=== PATIENT | female | born 1985 | race Caucasian/White ===

== ENCOUNTER → 2016-08-24 | Outpatient (CLI) | payer OTHER, BC ==
[~2016-08-24] MED LIST: OXYC-57 PO
[2016-08-25 14:59] LABS: AFP CONCENTRATION 41.2 NG/ML; AFP MULTIPLE OF MEDIAN 0.81; AFPTS GESTATIONAL AGE 19.4 WEEKS; AFPTS INSULIN DEP DIABETIC? NO; AFPTS MATERNAL WT 154 LBS; ALPHA-FETOPROTEIN RACE CAUCASIAN=W; ESTRIOL MULTIPLE OF MEDIAN 1.28; HISTORY OF NTD NO; INHIBIN A 198 PG/ML; INHIBIN A MOM 1.13; REPEAT SAMPLE? NO; hCG MULTIPLE OF MEDIAN 0.85
== END | disposition home or self-care (01) ==
LOC: C.LAB1850 11:30
PROVIDERS: ATTEND Obstetrics & Gynecology
DX: Z34.02 Encounter for supervision of normal first pregnancy, second trimester (principal)

== ENCOUNTER → 2016-10-18 | Outpatient (CLI) | payer OTHER, BC ==
[2016-10-18 13:13] LABS: HEMATOCRIT 31.9 % (37-47)
[2016-10-18 13:50] LABS: GTGD 50 Grams
== END | disposition home or self-care (01) ==
LOC: C.LAB1850 11:36
PROVIDERS: ATTEND Obstetrics & Gynecology
DX: Z34.03 Encounter for supervision of normal first pregnancy, third trimester (principal)

== ENCOUNTER → 2016-11-15 | Outpatient (CLI) | payer OTHER, BC ==
[2016-11-15 15:58] LABS: URINE APPEARANCE CLOUDY (CLEAR); URINE BILIRUBIN NEG (NEG); URINE COLOR DK YELLOW; URINE EPITHELIAL CELL AUTO >30 /lpf (0-5); URINE NITRITE NEG (NEG); URINE PH 6.5 (4.5-7.5); URINE SPECIFIC GRAVITY 1.023 (1.000-1.030); UROBILINOGEN POS (NEG)
[2016-11-15 16:02] LABS: MANUAL MICROSCOPIC REQUIRED? NO; REVIEW REQ? YES
== END | disposition home or self-care (01) ==
LOC: C.LABSPEC 15:44
PROVIDERS: ATTEND Obstetrics & Gynecology
DX: Z34.03 Encounter for supervision of normal first pregnancy, third trimester (principal)

== ENCOUNTER → 2016-12-20 | Outpatient (CLI) | payer OTHER, BC | END | disposition home or self-care (01) | LOC: C.LABSPEC 13:36 | PROVIDERS: ATTEND Obstetrics & Gynecology | DX: Z34.03 Encounter for supervision of normal first pregnancy, third trimester (principal) ==

== ENCOUNTER 2017-01-09 08:01 | Inpatient (IN) | payer OTHER, BC ==
[~2017-01-09] VITALS: Ht 172.7 cm; Wt 79.0 kg
[2017-01-09] MEDS ORDERED: LACTATED RINGER'S 1000ML 1,000 ML IV PRN (08:49)
[2017-01-09] MEDS ORDERED: EpHEDrine SULFATE INJ 50 MG/ML AMP ONE (08:53)
[2017-01-09] MEDS ORDERED: BUPIVACAINE 0.25% 30 ML VIAL ONE (08:53)
[2017-01-09] MEDS ORDERED: FENTANYL CITRATE INJ 50 MCG/1 ML 2 ML VIAL ONE ×2 (08:54→16:34)
[2017-01-09] MEDS ORDERED: FENTANYL 2MCG/ML ROPIV 1.25MG/ML 100ML BAG EPI ONE (08:54)
[2017-01-09 09:05] VITALS: Ht 172.7 cm; Wt 79.0 kg
[2017-01-09 09:32] LABS: MEAN CELL VOLUME 87.5 fL (80-100); MEAN PLATELET VOLUME 10.1 fL (7.4-10.4); PLATELET COUNT 182 K/uL (130-400)
[2017-01-09 09:39] LABS: MEAN CORPUSCULAR HGB CONC 35.4 g/dl (32-36)
[2017-01-09] MEDS: LACTATED RINGER'S 1000ML 1,000 ML IV SCH ×2 (10:01→13:52)
[2017-01-09] MEDS ORDERED: LACTATED RINGER'S 1000ML 500 ML IV PRN ×2 (10:06→17:21)
[2017-01-09] MEDS ORDERED: NALOXONE HCL INJ 1 MG in SODIUM CHLORIDE 0.9% 1000ML 1,000 ML IV PRN ×8 (10:06→17:21)
[2017-01-09] MEDS ORDERED: ONDANSETRON INJ 2 MG/ML 2 ML VIAL IV PRN ×2 (10:15→17:30)
[2017-01-09] MEDS ORDERED: NALBUPHINE HCL INJ 10 MG/ML AMP IV PRN ×2 (10:15→17:30)
[2017-01-09] MEDS ORDERED: FENTANYL 2MCG/ML ROPIV 1.25MG/ML 100ML BAG EPI PRN (10:15)
[2017-01-09] MEDS ORDERED: PROMETHAZINE HCL INJ 25 MG in SODIUM CHLORIDE 0.9% 50ML 50 ML IV PRN ×2 (10:15→17:30)
[2017-01-09] MEDS ORDERED: EpHEDrine SULFATE INJ 50 MG/ML AMP IV PRN ×2 (10:15→17:30)
[2017-01-09] MEDS ORDERED: DiphenhydrAMINE HCL 50 MG/ML VIAL IV PRN ×2 (10:15→17:30)
[2017-01-09] MEDS ORDERED: NALOXONE HCL 0.4 MG/1 ML VIAL/CARP IV PRN ×2 (10:15→17:30)
[2017-01-09] MEDS ORDERED: TERBUTALINE SULFATE 1 MG/ML VIAL SQ ONE (12:45)
[2017-01-09] MEDS ORDERED: CITRIC ACID/SODIUM CITRATE 15 ML UDC ONE (16:29)
[2017-01-09] MEDS ORDERED: CITRIC ACID/SODIUM CITRATE 15 ML UDC PO ONE (16:30)
[2017-01-09] MEDS ORDERED: CEFAZOLIN SOD 1 GM VIAL ONE (16:43)
[2017-01-09] MEDS ORDERED: LIDOCAINE/EPINEPHRINE 2% 1:200,000 20 ML SDV ONE (16:44)
[2017-01-09] MEDS ORDERED: OXYTOCIN INJ 10 UNITS/ML VIAL ONE ×4 (16:47→17:28)
[2017-01-09] MEDS ORDERED: MoRPHine SULFATE PF 1 MG/ML 10 ML AMP/VIAL ONE (16:49)
[2017-01-09] MEDS ORDERED: ONDANSETRON INJ 2 MG/ML 2 ML VIAL ONE (16:53)
[2017-01-09] MEDS ORDERED: CEFAZOLIN IV 2,000 MG in DEXTROSE 5% 50ML 50 ML IV SCH (17:00)
[2017-01-09] MEDS ORDERED: SODIUM CHLORIDE 0.9% 1000ML 1,000 ML IV PRN (17:21)
[2017-01-09] MEDS ORDERED: NALOXONE HCL INJ 0.08 MG in SYRINGE 1.8 ML IV PRN (17:21)
[2017-01-09] MEDS ORDERED: KETOROLAC TROMETHAMINE 30 MG/ML VIAL ONE (17:28)
[2017-01-09] MEDS ORDERED: HYDROCORTISONE ACETATE 25 MG SUPP PR PRN (17:30)
[2017-01-09] MEDS ORDERED: MoRPHine SULFATE PF 1 MG/ML 10 ML AMP/VIAL EPI PRN (17:30)
[2017-01-09] MEDS ORDERED: DIPHTHERIA/TETANUS/PERTUSSIS 0.5 ML SYR/VIAL IM. ONE (17:30)
[2017-01-09] MEDS ORDERED: BENZOCAINE 20% AER SPR 82.5 GM CAN EXT PRN (17:30)
[2017-01-09] MEDS ORDERED: SUPERCREAM 0.870 % 15GM JAR EXT PRN (17:30)
[2017-01-09] MEDS ORDERED: LANOLIN OINT EXT PRN ×2 (17:30)
--- NOTE | 2017-01-09 17:40 | [facility] Post Operative Brief Note ---
Immediate Operative Summary Operative Date Jan 09, 2017. Pre-Operative Diagnosis Term intrauterine , Category III Tracing - nonresponsive to resuscitative measures, bradycardia Post-Operative Diagnosis Same Procedure(s) Performed Primary low transverse section Surgeon Kyle Rajan DO Hotel Service Manager Surgeon(s) Lydia Leroy MD Estimated Blood Loss 300ml Findings Viable male , APGARS 8/9, Wt 7#7. Tight nuchal cord x 1. Normal appearing uterus, tubes, ovaries. Specimens Placenta, cord blood sample Drains ho clear yellow Anesthesia spinal Complication(s) None Disposition Recovery Room / PACU
--- NOTE | 2017-01-09 18:11 | Anesthesiology Progress Note ---
Anesthesia Post Op Note Date & Time Jan 09, 2017 at 18:10 Notes Mental Status: alert / awake / arousable, participated in evaluation Pt Amnestic to Procedure: No Nausea / Vomiting: adequately controlled Pain: adequately controlled Airway Patency, RR, SpO2: stable & adequate BP & HR: stable & adequate Hydration State: stable & adequate Neuraxial Anesthesia: was administered, sensory block is resolving Anesthetic Complications: no major complications apparent
[2017-01-09] MEDS: OXYTOCIN INJ 20 UNITS in LACTATED RINGER'S 1000ML 1,000 ML IV SCH (19:33)
[2017-01-09] MEDS: DOCUSATE SODIUM 100 MG CAP PO SCH (20:27)
[2017-01-09 20:45] VITALS: BP 105/65; PULSE 104; TEMP 36.9; O2SAT 97
[2017-01-09] MEDS: KETOROLAC TROMETHAMINE 30 MG/ML VIAL IV. PRN (21:18)
[2017-01-09 21:45] VITALS: BP 117/67; PULSE 104; TEMP 36.8; O2SAT 98
[2017-01-09 22:45] VITALS: O2SAT 97
[2017-01-09 23:55] VITALS: BP 109/69; PULSE 96; TEMP 36.8; O2SAT 98; O2SAT 99
[2017-01-10] VITALS (18 sets, daily range): BP systolic 98–121; BP diastolic 64–83; PULSE 80–100; TEMP 36.6–37.2; O2SAT 96–100
[2017-01-10] MEDS ORDERED: ONDANSETRON INJ 2 MG/ML 2 ML VIAL IV PRN ×2 (00:01→12:00)
[2017-01-10] MEDS ORDERED: DiphenhydrAMINE HCL 50 MG/ML VIAL IV PRN ×2 (00:01→12:00)
[2017-01-10] MEDS ORDERED: KETOROLAC TROMETHAMINE 30 MG/ML VIAL IV. PRN ×2 (00:01→12:01)
[2017-01-10] MEDS: OXYTOCIN INJ 20 UNITS in LACTATED RINGER'S 1000ML 1,000 ML IV SCH (04:58)
--- NOTE | 2017-01-10 05:22 | OPERATIVE REPORT ---
DATE OF OPERATION: 01/09/2017 PREOPERATIVE DIAGNOSES: 1. Term intrauterine . 2. Category 3 heart tracing. 3. Persistent bradycardia. POSTOPERATIVE DIAGNOSES: Same. PROCEDURE PERFORMED: Primary low transverse section. SURGEON: Dr. Faiza Rajan. INDUSTRIAL PRODUCTION MANAGER: Dr. Leroy. ESTIMATED BLOOD LOSS: 300 mL. FINDINGS: Viable male with Apgars 8 and 9, weight 7 pounds 7 ounces, tight nuchal cord x1. Normal appearing uterus, tubes, and ovaries. SPECIMENS: Placenta and cord blood sample. DRAINS: Tobin, clear yellow at conclusion of case. ANESTHESIA: Spinal. COMPLICATIONS: None. DISPOSITION: Stable and good to recovery room and PACU. INDICATIONS FOR DELIVERY: The patient is a 31-year-old G1, P0 at 39 weeks 1 day who had presented in spontaneous labor. She progressed to 8 cm of dilation and was having occasional contraction and with almost every contraction, a variable deceleration. Resuscitative measures were attempted and then the baby had a 10-plus minute heart rate deceleration to the 80s and 90s, nonresponsive to resuscitative measures. Oxygen was applied. No Pitocin was being used in the first place. Fluid bolus was given, multiple position changes were attempted and baby was nonresponsive to these resuscitative measures. Due to remote from delivery status and nonreassuring heart tones, I discussed with the patient section and she was agreeable. I verbally consented her for section in the room and she gave verbal consent. Due to the urgent nature of the section, written consent was unable to be obtained prior to proceeding to the operating room. By the time patient was ready to be taken to OR, FHTs did return to 140s/150s, however due to Cat 3 tracing, prolonged bradycardia, slow return to baseline, and non-imminent delivery, decision was made to proceed with section. DESCRIPTION OF PROCEDURE: The patient was taken to the operating room where spinal anesthesia was given. She was prepared and draped in the usual sterile fashion in the supine position with a leftward tilt. A Pfannenstiel skin incision was made with a scalpel and carried through to the underlying layer of the fascia. Fascia was nicked at midline and bilaterally bluntly. The anterior aspect of the fascial incision was grasped with Karly clamps x2, elevated off the underlying rectus abdominis muscles and dissected bluntly. In a similar fashion, the inferior aspect of the incision was dissected. The rectus abdominis muscles were at midline and the peritoneum was entered bluntly digitally. This was extended bluntly. The bladder blade was placed. A bladder flap was created using Metzenbaum scissors and [place] Island[place] forceps. The uterine incision was made with a scalpel and then extended cephalad caudad manually. The baby was delivered from a cephalic presentation. The head delivered. A tight nuchal cord was noted. This was reduced. The anterior, followed by posterior shoulder, followed by body were delivered. At the time of delivery, it was noted by myself an abnormal appearing leg that director of search engine marketing attending delivery, Dr. Moore, reported verbally that this appeared to be dislocated knee, that appeared to have been present for a significant period of time, did not appear to be related to delivery. No abnormal aspects of the uterus were noted that could have possibly contributed to this during development on my exploration. The cord was doubly clamped and cut, spontaneous cry was heard on the field. The baby was handed off to the waiting director of search engine marketing. A cord segment was obtained for cord gases. The placenta was delivered spontaneously intact with a 3-vessel cord. The uterus was exteriorized. The uterus was cleared of all clots and debris. The hysterotomy incision was reapproximated using 0 Vicryl in a running locked stitch, a second layer of the same suture was used to imbricate the hysterotomy incision. The posterior uterus was inspected and found to be normal. The uterus was returned to the abdomen and the hysterotomy incision was noted to be hemostatic. The gutters were cleared of clots and debris. The fascia was reapproximated with 0 Vicryl in a running stitch. Subcutaneous tissue was reapproximated using 2-0 plain gut and then the skin was reapproximated using 4-0 Vicryl in a running subcuticular stitch. I attest to the content of the Intraoperative Record and any orders documented therein. Any exceptions are noted below. MTDD
[2017-01-10 07:06] LABS: BASO % 0.1 %; BASO ABS # 0.01 K/uL (0-0.2); COMPLETE YES; EOS % 0.1 %; HEMATOCRIT 28.3 % (37-47); IG% 0.4 %; LYMPH % 7.7 %; LYMPH ABS # 0.71 K/uL (1.2-3.4); MEAN CELL VOLUME 89.8 fL (80-100); MEAN CORPUSCULAR HEMOGLOBIN 31.7 pg (25-34); MEAN CORPUSCULAR HGB CONC 35.3 g/dl (32-36); MEAN PLATELET VOLUME 9.7 fL (7.4-10.4); MONO % 4.5 %; NEUT % 87.2 %; PLATELET COUNT 141 K/uL (130-400); RED BLOOD COUNT 3.15 M/uL (4.2-5.4); WHITE BLOOD COUNT 9.21 K/uL (4.8-10.8)
--- NOTE | 2017-01-10 07:16 | Progress Note ---
Subjective Jan 10, 2017. Subjective conversation w/ patient, physical exam Ambulation: ambulating normally (has not ambulated yet, going to attempt this morning) Voiding: ho catheter in place Passing Gas: Yes Diet Tolerance: NPO (has not eaten yet) Lochia: Small Feeding Type: Bottle Feeding Pain: well controlled Review of Systems Constitutional: No fever, No chills, No sweats Respiratory: No cough, No shortness of breath Cardiac: No chest pain, No palpitations Abdomen: No pain, No nausea, No vomiting Objective Vital Signs Date Time Temp Pulse Resp B/P (MAP) Pulse Ox O2 Delivery O2 Flow Rate FiO2 01/10/17 05:00 20 100 01/10/17 05:00 36.9 88 20 98/64 (75) 100 Room Air 01/10/17 04:00 20 100 01/10/17 03:00 17 97 01/10/17 02:00 16 97 01/10/17 01:10 16 96 01/10/17 00:00 20 98 01/09/17 23:55 98 Room Air 01/09/17 23:55 36.8 96 20 109/69 (82) 99 Room Air 01/09/17 23:55 20 99 01/09/17 22:45 16 97 01/09/17 21:45 36.8 104 20 117/67 (84) 98 Room Air 01/09/17 21:45 16 98 01/09/17 20:45 18 97 01/09/17 20:45 97 Room Air 01/09/17 20:45 36.9 104 18 105/65 (78) 97 Room Air Physical Exam General Appearance: WELL-APPEARING, NO APPARENT DISTRESS Respiratory/Chest: lungs clear, no accessory muscle use Cardiovascular: regular rate, rhythm, no murmur Abdomen: non tender, soft Incision Description: Clean, Dry & Intact Extremities: non-tender, no calf tenderness Laboratory Results Last 24 Hours Test 01/09/17 09:17 01/10/17 06:49 White Blood Count 12.70 K/uL 9.21 K/uL Red Blood Count 4.00 M/uL 3.15 M/uL Hemoglobin 12.4 g/dL 10.0 g/dL Hematocrit 35.0 % 28.3 % Mean Corpuscular Volume 87.5 fL 89.8 fL Mean Corpuscular Hemoglobin 31.0 pg 31.7 pg Mean Corpuscular Hemoglobin Concent 35.4 g/dl 35.3 g/dl RDW Standard Deviation 43.2 fL 45.6 fL RDW Coefficient of Variation 13.4 % 13.9 % Platelet Count 182 K/uL 141 K/uL Mean Platelet Volume 10.1 fL 9.7 fL Neutrophils (%) (Auto) 87.2 % Lymphocytes (%) (Auto) 7.7 % Monocytes (%) (Auto) 4.5 % Eosinophils (%) (Auto) 0.1 % Basophils (%) (Auto) 0.1 % Neutrophils # (Auto) 8.03 K/uL Lymphocytes # (Auto) 0.71 K/uL Monocytes # (Auto) 0.41 K/uL Eosinophils # (Auto) 0.01 K/uL Basophils # (Auto) 0.01 K/uL Immature Granulocyte % (Auto) 0.4 % Immature Granulocyte # (Auto) 0.04 K/uL Assessment and Plan Post-, Post-Op Day#: 1 Continue Routine Care: C Section Day 1 A+, GBS-, Rubella immune Hgb 10 today Encourage ambulation, monitor lochia Continue routine post C Section care Resident Physician Supervision Note: I was present with Dr. Leroy during the history and exam. I discussed the case with the resident and agree with the findings and plan as documented in the note. Any exceptions or clarifications are listed here: POD#1 doing well. Continue routine postop care. Documented By: Faiza Rajan
[2017-01-10] MEDS: KETOROLAC TROMETHAMINE 30 MG/ML VIAL IV. PRN (08:49)
[2017-01-10] MEDS: FERROUS SULFATE 325 MG TAB PO SCH (08:50)
[2017-01-10] MEDS: PRENATAL VITAMIN TAB PO SCH (08:50)
[2017-01-10] MEDS: DOCUSATE SODIUM 100 MG CAP PO SCH ×2 (08:51→20:08)
[2017-01-10] MEDS ORDERED: DC INTRASPINAL MORPHINE SCH ×2 (12:00)
[2017-01-10] MEDS ORDERED: NO NARCOTICS OR SEDATIVES SCH ×2 (12:00)
[2017-01-10] MEDS ORDERED: OXYCODONE/ACETAMINOPHEN 5-325 TAB PO PRN ×4 (12:00)
[2017-01-11 07:08] LABS: HEMATOCRIT 29.1 % (37-47)
--- NOTE | 2017-01-11 07:38 | Progress Note ---
Subjective Jan 11, 2017. Subjective conversation w/ patient, physical exam Ambulation: ambulating normally Voiding: no voiding problems Passing Gas: Yes Diet Tolerance: Regular Diet Lochia: Small Feeding Type: Bottle Feeding Pain: none Review of Systems Constitutional: No fever, No chills Respiratory: No cough, No shortness of breath Cardiac: No chest pain, No palpitations Abdomen: No pain, No nausea, No vomiting Objective Vital Signs Date Time Temp Pulse Resp B/P (MAP) Pulse Ox O2 Delivery O2 Flow Rate FiO2 01/10/17 23:20 36.9 95 20 112/76 (88) 99 Room Air 01/10/17 23:20 Room Air 01/10/17 20:00 37.2 100 20 116/83 (94) 98 Room Air 01/10/17 20:00 Room Air 01/10/17 15:30 98 Room Air 01/10/17 15:30 36.8 98 18 121/78 (92) 98 Room Air 01/10/17 12:00 16 100 01/10/17 11:05 36.6 80 18 107/73 (84) 97 Room Air 01/10/17 11:00 18 100 01/10/17 10:00 18 98 01/10/17 09:00 16 99 01/10/17 08:30 97 Room Air 01/10/17 08:00 16 98 Physical Exam General Appearance: WELL-APPEARING, NO APPARENT DISTRESS Respiratory/Chest: lungs clear, no accessory muscle use Cardiovascular: regular rate, rhythm, no murmur Abdomen: normal bowel sounds, non tender, soft Fundus: Firm, Non-Tender, Relation to Umbilicus (1 cm below) Incision Description: Clean, Dry & Intact Extremities: non-tender, no calf tenderness Laboratory Results Last 24 Hours Test 01/11/17 06:46 Hemoglobin 10.2 g/dL Hematocrit 29.1 % Assessment and Plan Post-, Post-Op Day#: 2 Continue Routine Care: C section day 2 Vitals reviewed and stable A+, GBS-, rubella immune Hgb 10.2 today Encourage ambulation, monitor lochia Patient doing well clinically CONTINUE ROUTINE POST C SECTION CARE Resident Physician Supervision Note: I interviewed and examined the patient. Discussed with Dr. Leroy and agree with findings and plan as documented in the note. Any exceptions or clarifications are listed here: [None] Documented By: Magen Zaldivar
[2017-01-11 08:10] VITALS: BP 141/86; PULSE 99; TEMP 36.6; O2SAT 98
[2017-01-11] MEDS: FERROUS SULFATE 325 MG TAB PO SCH (08:13)
[2017-01-11] MEDS: DOCUSATE SODIUM 100 MG CAP PO SCH ×2 (08:13→19:31)
[2017-01-11] MEDS: PRENATAL VITAMIN TAB PO SCH (08:13)
[2017-01-11] MEDS: IBUPROFEN 600 MG TAB PO PRN ×2 (08:14→19:33)
[2017-01-11 16:45] VITALS: BP 117/78; PULSE 90; TEMP 36.6; O2SAT 100
[2017-01-11 23:35] VITALS: BP 115/79; PULSE 67; TEMP 36.6; O2SAT 97
--- NOTE | 2017-01-12 07:43 | Progress Note ---
Subjective Jan 12, 2017. Subjective conversation w/ patient, physical exam, lab review Voiding: no voiding problems Passing Gas: Yes Diet Tolerance: Regular Diet Lochia: Small Feeding Type: Bottle Feeding Pain: controlled with oral pain Objective Vital Signs Date Time Temp Pulse Resp B/P (MAP) Pulse Ox O2 Delivery O2 Flow Rate FiO2 01/11/17 23:35 97 Room Air 01/11/17 23:35 36.6 67 16 115/79 (91) 97 Room Air 01/11/17 16:45 36.6 90 18 117/78 (91) 100 Room Air 01/11/17 16:45 Room Air 01/11/17 08:10 36.6 99 21 141/86 (104) 98 Room Air 01/11/17 08:10 Room Air Physical Exam General Appearance: WELL-APPEARING, WD/WN, NO APPARENT DISTRESS Abdomen: normal bowel sounds, non tender, soft Fundus: Firm, Non-Tender, Relation to Umbilicus (at u) Incision Description: Clean, Dry & Intact Extremities: non-tender, normal inspection, no pedal edema Assessment and Plan Post-, Post-Op Day#: 3 Continue Routine Care: Doing well, plan d/c home. Instructions given.
[2017-01-12] MEDS ORDERED: OXYC-57 PO (07:44)
--- NOTE | 2017-01-12 07:45 | Discharge Instructions ---
Discharge Instructions Date of Service Jan 12, 2017. Admission Reason for Admission: R/O Labor Discharge Discharge Diagnosis / Problem: s/p primary Discharge Goals Goal(s): Routine recovery after Activity Recommendations Activity Limitations: per Instructions/Follow-up section . Instructions / Follow-Up Instructions / Follow-Up ACTIVITY RECOMMENDATIONS: * Gradual return to full activity over the next 2-3 weeks. * No lifting - nothing heavier than baby over the next 2-3 weeks. * Do not engage in vigorous exercise, sexual activity or sports until cleared by your physician. * Do not drive or operate any motorized equipment until cleared by your physician. * You may shower/bathe daily. MEDICATIONS: For discomfort or pain, you may use Acetaminophen (Tylenol), Ibuprofen (Advil), or Naproxen (Aleve) following the package directions. For constipation you may use Colace following the package directions. BREAST CARE: If you are not breast feeding: * Wear a supportive bra 24 hours a day for one to two weeks. * Avoid stimulating your breasts and nipples as much as possible during the first few weeks after delivery. * When taking a shower, have the warm water hit your back, not breasts. * When your breasts feel full, apply ice packs. Usually three to four times a day helps ease the discomfort. * Take a mild pain medication (Tylenol / Motrin) when you are uncomfortable. If breast feeding: * Use breast milk to lubricate nipples. Lansinoh cream may be used for sore nipples. You do not need to remove cream prior to breast feeding. If using a different brand of cream, check the label for directions regarding removal of cream prior to nursing. * Wear a supportive bra. * If having problems with breasts or breast feeding, call a senior safety management consultant or your health care provider. SPECIAL CARE INSTRUCTIONS: When you are discharged from the hospital, it is important for you to follow the instructions listed below: * During the first week at home, you should be able to care for yourself and your baby. In addition, the usual light household activities are encouraged. * Limit your activities to the way you feel. Do not try to clean the house or move furniture. Be sensible. * If you actively engage in sports and have done so up until the time of your delivery, you may resume these activities as soon as you feel able. This may take up to one month or even longer. Use good judgment. * Continue to take your vitamins for at least six weeks after the of your baby. * Your diet need not be limited unless you were on a special diet before your delivery. Breast-feeding mothers need around 2500 calories per day and at least 64-80 ounces of fluid per day (8 to 10 glasses). * You should eat foods from the four major food groups. Crash diets or fad diets are to be avoided. Eating lean meats, fresh fruits and vegetables, low-fat dairy products, high fiber foods and a regular exercise program, will help you get back to your pre- weight without putting your health at risk. * Constipation is sometimes a problem after delivery. Take a mild laxative as needed. If breast feeding, Milk of Magnesia is acceptable to use. You may use a suppository or Fleets enema. * A daily shower or tub bath is suggested. Wash incision daily with warm soapy water and pat dry. It doesn't need to be covered unless drainage is present. * A bloody vaginal discharge will usually continue until around four weeks . A small amount of bleeding may continue for as long as six weeks. Vaginal discharge changes from the bright red bleeding after delivery to pink then brownish and finally yellowish-pink before becoming white and disappearing. * Bleeding may increase with activity. Your first period may come in 4-8 weeks. If you are breast feeding, your period may be delayed even longer. * [place] (sex) can begin whenever both you and your partner feel comfortable and do not have any form of genital infection. It is recommended that you wait at least six weeks for internal and external healing to occur. If you have questions, please talk to your health care practitioner. A condom should be used to prevent infection and . * Foreplay, gentle intercourse and lubrication is very important the first several times to prevent pain. A water-based lubricant such as K-Y jelly or Astroglide may be used. * If you have RH negative blood and your baby is RH positive, you will receive RHOGAM by injection prior to discharge. The nurse will give you a card to keep with you that has the date and place that you received RHOGAM after delivery. * During your care, you had a Rubella screen done to check for the presence of rubella antibodies in your blood. If your test was negative, you will receive a Rubella vaccine prior to discharge. This vaccine may cause a fever, soreness at the injection site and flu-like symptoms. If these symptoms persist, notify your health care practitioner. is not advised for one month after a Rubella vaccine. * Verbalizes understanding of car seat law as reviewed with patient nursing. * Car Seat hand-out given and reviewed with patient by nursing. * Shaken baby information reviewed with patient by nursing. Call you doctor if: * Heavy bleeding (saturating several pads an hour) or passing clots the size of your fist. * A fever >101 degrees F (38.3 degrees C) on two occasions four hours apart and /or chills. * Unusual pain in the pelvic or vaginal areas. * Call the doctor for any increased redness, drainage or swelling around the incision and any pain unrelieved by prescribed pain medication. * "Baby Blues" lasting longer than two weeks. If you have any questions or concerns, call your health care practitioner at . FOLLOW UP VISIT: * Please call the office at to schedule a 6 week examination. It is important you keep this appointment. It is important for you to make arrangements for either yearly or twice yearly check-ups thereafter. Current Hospital Diet Patient's current hospital diet: Regular OB Diet Discharge Diet Recommended Diet: Regular Diet Procedures Procedures Performed: Primary low transverse section Pending Studies Studies pending at discharge: no Medical Emergencies . Who to Call and When: Medical Emergencies: If at any time you feel your situation is an emergency, please call [phone] immediately. . Non-Emergent Contact Non-Emergency issues call your: Gas Fitter Apprentice . . "Provider Documentation" section prepared by Citlalli Arellano. . VTE Core Measure Inpt VTE Proph given/why not?: Treatment not indicated [place] Drug Monitoring Program Search Results: patient reviewed within database, no issues identified
[2017-01-12 07:48] VITALS: BP 121/83; PULSE 87; TEMP 36.7; O2SAT 99
[2017-01-12] MEDS: FERROUS SULFATE 325 MG TAB PO SCH (07:55)
[2017-01-12] MEDS: PRENATAL VITAMIN TAB PO SCH (07:55)
[2017-01-12] MEDS: DOCUSATE SODIUM 100 MG CAP PO SCH (07:56)
[2017-01-12] MEDS: IBUPROFEN 600 MG TAB PO PRN (07:56)
[2017-01-12 13:00] VITALS: BP_DIAS 83; PULSE 87; TEMP 36.7
--- NOTE | 2017-01-20 10:27 | DISCHARGE SUMMARY ---
PRE-ADMISSION DIAGNOSES: Term intrauterine . POST-ADMISSION DIAGNOSES: 1. Term intrauterine . 2. Category 3 heart tracing 3. Persistent bradycardia. PROCEDURE: Primary low transverse section. FINDINGS: Viable male with Apgars 8 and 9, weight 7 pounds 7 ounces. DESCRIPTION OF STAY: The patient was admitted in labor and after developing category 3 heart tracing with persistent bradycardia at dilation of 8 cm section was performed. She recovered well and was discharged to home on 01/12/2017 in stable and good condition. CONDITION ON DISCHARGE: Stable and good. Follow up in office in 6 weeks. MEDICATIONS ON DISCHARGE: Percocet and Motrin. ACTIVITIES: Pelvic rest, no heavy lifting. DIET: Regular.
== END 2017-01-12 13:00 | disposition home or self-care (01) | DRG 766 ==
LOC: C.LD 08:01 → C.OPB 08:01 → C.LD 08:51 → C.OPB 08:51 → C.OBG 20:20 → EDSTATUS 01-15 08:07
PROVIDERS: ADMIT Obstetrics & Gynecology; ATTEND Obstetrics & Gynecology
PROC: 10D00Z1 Extraction of Products of Conception, Low, Open Approach (ICD-10-PCS; principal; 2017-01-09 16:46)
DX: O99.02 Anemia complicating childbirth (principal); Z37.0 Single live birth; O76 Abnormality in fetal heart rate and rhythm complicating labor and delivery; D64.9 Anemia, unspecified; O69.1XX0 Labor and delivery complicated by cord around neck, with compression, not applicable or unspecified; Z3A.39 39 weeks gestation of pregnancy

== ENCOUNTER → 2017-03-10 | Outpatient (CLI) | payer OTHER, BC ==
[2017-03-10 10:54] LABS: PREG INTERNAL NEGATIVE QC NEG CLEAR BACKGROUND; PREG INTERNAL POSITIVE QC POS CONTROL LINE
== END | disposition home or self-care (01) ==
LOC: C.LAB 09:59
PROVIDERS: ATTEND Obstetrics & Gynecology
DX: Z39.2 Encounter for routine postpartum follow-up (principal)